=== PATIENT | female | born 1985 | race African-American/Black ===

== ENCOUNTER 2016-06-24 16:22 | Emergency (ER) | payer OTHER ==
[~2016-06-24 16:22] MED LIST: METH750T2 PO
[2016-06-24 16:25] VITALS: BP 147/84; PULSE 80; RESP 20; TEMP 97.9; O2SAT 98
[2016-06-24] MEDS ORDERED: SODIUM CHLORIDE 0.9% FLUSH 5 ML FLUSH IVF PRN (17:00)
[2016-06-24] MEDS ORDERED: PANTOPRAZOLE SOD 40 MG DELAYED RELEASE TAB PO ONE (17:00)
[2016-06-24] MEDS ORDERED: ASPIRIN 325 MG TAB PO ONE (17:00)
[2016-06-24] MEDS ORDERED: ACETAMINOPHEN 500 MG CPLT PO ONE (17:00)
--- NOTE | 2016-06-24 17:01 | PD ---
HPI Chief Complaint: Cardiac Complaint Time Seen by Provider: 16:43 Travel History International Travel<30 days: No (unknown) Contact w/Intl Traveler<30days: No (unknown) History of Present Illness HPI 31yo F with no significant PMH presents to the ED with c/o midsternal chest pain for 3 weeks. It is constant and worst after eating. Pt was seen at urgent care and given prilosec 2 weeks ago. Denies any sob, n/v, abdominal pain , weakness or numbness. Denies family history of sudden cardiac . Denies any cig smoking. PFSH Past Medical History Medical History: Denies Significant Hx Diminished Hearing: No ?: Unknown : 3 Para: 3 Past Surgical History Section: Yes (x 3) Social History Alcohol Use: No Tobacco Use: No Substance Use: No Allergies-Medications (Allergen,Severity, Reaction): Coded Allergies: No Known Allergies (Unverified , 12/04/15) Reported Meds & Prescriptions Reported Meds & Active Scripts Active Acetaminophen Extra Strength (Acetaminophen) 500 Mg Cap 500 Mg PO Q6H PRN Omeprazole 40 Mg Cap 40 Mg PO DAILY 10 Days Review of Systems Except as stated in HPI: all other systems reviewed are Neg Physical Exam Narrative GENERAL: 31yo F not in distress. SKIN: Warm and dry. HEAD: Atraumatic. Normocephalic. EYES: Pupils equal and round. No scleral icterus. No injection or drainage. CARDIOVASCULAR: Regular rate and rhythm. No murmur appreciated. RESPIRATORY: No accessory muscle use. Clear to auscultation. Breath sounds equal bilaterally. GASTROINTESTINAL: Abdomen soft, non-tender, nondistended. MUSCULOSKELETAL: No obvious deformities. No clubbing. No cyanosis. No edema. NEUROLOGICAL: Awake and alert. No obvious cranial nerve deficits. Motor grossly within normal limits. Normal speech. PSYCHIATRIC: Appropriate mood and affect; insight and judgment normal. Data Data Last Documented VS Vital Signs Date Time Temp Pulse Resp B/P Pulse Ox O2 Delivery O2 Flow Rate FiO2 06/24/16 18:44 16 06/24/16 18:00 68 118/69 99 Room Air 06/24/16 16:25 97.9 Orders Electrocardiogram (06/24/16 ) Basic Metabolic Panel (Bmp) (06/24/16 16:54) Complete Blood Count With Diff (06/24/16 16:54) Magnesium (Mg) (1/7/17 16:54) Prothrombin Time / Inr (Pt) (06/24/16 16:54) Act Partial Throm Time (Ptt) (06/24/16 16:54) Troponin I (06/24/16 16:54) Chest, Single Ap (06/24/16 16:54) Ecg Monitoring (06/24/16 16:54) Bilateral Bp Monitoring (06/24/16 16:54) Aspirin (Aspirin) (06/24/16 17:00) Sodium Chloride 0.9% Flush (Ns Flush) (06/24/16 17:00) Pantoprazole (Protonix) (06/24/16 17:00) Acetaminophen (Tylenol) (06/24/16 17:00) Labs Laboratory Tests Test 06/24/16 17:25 White Blood Count 8.7 TH/MM3 Red Blood Count 4.70 MIL/MM3 Hemoglobin 12.0 GM/DL Hematocrit 36.5 % Mean Corpuscular Volume 77.7 FL Mean Corpuscular Hemoglobin 25.5 PG Mean Corpuscular Hemoglobin 32.8 % Concent Red Cell Distribution Width 17.2 % Platelet Count 226 TH/MM3 Mean Platelet Volume 10.0 FL Neutrophils (%) (Auto) 64.5 % Lymphocytes (%) (Auto) 25.3 % Monocytes (%) (Auto) 7.7 % Eosinophils (%) (Auto) 2.1 % Basophils (%) (Auto) 0.4 % Neutrophils # (Auto) 5.6 TH/MM3 Lymphocytes # (Auto) 2.2 TH/MM3 Monocytes # (Auto) 0.7 TH/MM3 Eosinophils # (Auto) 0.2 TH/MM3 Basophils # (Auto) 0.0 TH/MM3 CBC Comment DIFF FINAL Differential Comment Prothrombin Time 10.7 SEC Prothromb Time International 1.0 RATIO Ratio Activated Partial 23.5 SEC Thromboplast Time Sodium Level 140 MEQ/L Potassium Level 4.0 MEQ/L Chloride Level 105 MEQ/L Carbon Dioxide Level 27.0 MEQ/L Anion Gap 8 MEQ/L Blood Urea Nitrogen 8 MG/DL Creatinine 0.59 MG/DL Estimat Glomerular Filtration 143 ML/MIN Rate Random Glucose 85 MG/DL Calcium Level 8.3 MG/DL Magnesium Level 2.0 MG/DL Troponin I LESS THAN 0.02 NG/ML MDM Medical Decision Making Medical Screen Exam Complete: Yes Emergency Medical Condition: Yes Interpretation(s) Laboratory Tests Test 06/24/16 17:25 White Blood Count 8.7 TH/MM3 (4.0-11.0) Red Blood Count 4.70 MIL/MM3 (4.00-5.30) Hemoglobin 12.0 GM/DL (11.6-15.3) Hematocrit 36.5 % (35.0-46.0) Mean Corpuscular Volume 77.7 FL (80.0-100.0) Mean Corpuscular Hemoglobin 25.5 PG (27.0-34.0) Mean Corpuscular Hemoglobin 32.8 % Concent (32.0-36.0) Red Cell Distribution Width 17.2 % (11.6-17.2) Platelet Count 226 TH/MM3 (150-450) Mean Platelet Volume 10.0 FL (7.0-11.0) Neutrophils (%) (Auto) 64.5 % (16.0-70.0) Lymphocytes (%) (Auto) 25.3 % (9.0-44.0) Monocytes (%) (Auto) 7.7 % (0.0-8.0) Eosinophils (%) (Auto) 2.1 % (0.0-4.0) Basophils (%) (Auto) 0.4 % (0.0-2.0) Neutrophils # (Auto) 5.6 TH/MM3 (1.8-7.7) Lymphocytes # (Auto) 2.2 TH/MM3 (1.0-4.8) Monocytes # (Auto) 0.7 TH/MM3 (0-0.9) Eosinophils # (Auto) 0.2 TH/MM3 (0-0.4) Basophils # (Auto) 0.0 TH/MM3 (0-0.2) CBC Comment DIFF FINAL Differential Comment Prothrombin Time 10.7 SEC (9.8-11.6) Prothromb Time International 1.0 RATIO Ratio Activated Partial 23.5 SEC Thromboplast Time (24.3-30.1) Sodium Level 140 MEQ/L (136-145) Potassium Level 4.0 MEQ/L (3.5-5.1) Chloride Level 105 MEQ/L (98-107) Carbon Dioxide Level 27.0 MEQ/L (21.0-32.0) Anion Gap 8 MEQ/L (5-15) Blood Urea Nitrogen 8 MG/DL (7-18) Creatinine 0.59 MG/DL (0.50-1.00) Estimat Glomerular Filtration 143 ML/MIN Rate (>89) Random Glucose 85 MG/DL (74-106) Calcium Level 8.3 MG/DL (8.5-10.1) Magnesium Level 2.0 MG/DL (1.5-2.5) Troponin I LESS THAN 0.02 NG/ML (0.02-0.05) Last Impressions Chest X-Ray 06/24/16 6814 Signed Impressions: Service Date/Time: Friday, June 24, 2016 17:18 - CONCLUSION: Normal examination. Ronaldo Longoria MD EKG: NSR 76bpm. Normal axis. TWI III, V3. Differential Diagnosis GERD vs. atypical chest pain vs. musculoskeletal pain vs. anxiety Narrative Course 31yo F with atypical chest pain for 3 weeks. Pain is worst after eating and burning. Do not think this is cardiac related. Labs reviewed, no leukocytosis. Troponin negative. CXR negative. VS stable. Pt reevaluated at bedside after aspirin 325mg, pantoprazole 40mg, and acetaminophen 1000 mg. Pt states chest pain resolved after medication. Return precautions given. Diagnosis Primary Impression: Atypical chest pain Patient Instructions: General Instructions Departure Forms: Tests/Procedures Additional Instructions: Please follow up with your PMD in 1-2 days. Return to the ED if your symptoms worsen. Med/Other Pt SpecificInfo: Prescription(s) given Scripts Acetaminophen (Acetaminophen Extra Strength)500 Mg Fll882 Mg PO Q6H PRN #20 CAP Ref 0 Prov:Angelica Jaimes DO 06/24/16 Omeprazole 40 Mg Cap40 Mg PO DAILY 10 Days Ref 0 Prov:Angelica Jaimes DO 06/24/16 Disposition: 01 DISCHARGE HOME Condition: Stable Angelica Jaimes DO Jun 24, 2016 17:01 Angelica Jaimes DO Jun 24, 2016 17:01
--- NOTE | 2016-06-24 17:23 | RADRPT ---
EXAM DATE/TIME: 06/24/2016 17:18 [facility] COMPARISON: No previous studies available for comparison. INDICATIONS : Chest pain. MEDICAL HISTORY : None. SURGICAL HISTORY : None. ENCOUNTER: Initial ACUITY: 2 days PAIN SCORE: 8/10 LOCATION: Bilateral chest FINDINGS: A single view of the chest demonstrates the lungs to be symmetrically aerated without evidence of mas s, infiltrate or effusion. The cardiomediastinal contours are unremarkable. Osseous structures are intact. CONCLUSION: Normal examination. Ronaldo Longoria MD on June 24, 2016 at 17:21 Board Certified Radiologist. This report was verified electronically.
[2016-06-24 17:48] LABS: AUTOMATED NEUTROPHIL # 5.6 TH/MM3 (1.8-7.7); BASOPHIL % 0.4 % (0.0-2.0); EOSINOPHIL # 0.2 TH/MM3 (0-0.4); EOSINOPHIL % 2.1 % (0.0-4.0); HEMATOCRIT 36.5 % (35.0-46.0); HEMO FLAGS DIFF FINAL; LYMPH % 25.3 % (9.0-44.0); LYMPHOCYTE # 2.2 TH/MM3 (1.0-4.8); MEAN CELL VOLUME 77.7 FL (80.0-100.0); MEAN CORPUSCULAR HEMOGLOBIN 25.5 PG (27.0-34.0); MEAN CORPUSCULAR HGB CONC 32.8 % (32.0-36.0); MONO % 7.7 % (0.0-8.0); NEUT % 64.5 % (16.0-70.0); PLATELET COUNT 226 TH/MM3 (150-450); RED CELL DISTRIBUTION WIDTH 17.2 % (11.6-17.2); WHITE BLOOD COUNT 8.7 TH/MM3 (4.0-11.0)
[2016-06-24 17:57] LABS: APTT (PATIENT) 23.5 SEC (24.3-30.1); PROTHROMBIN TIME - PATIENT 10.7 SEC (9.8-11.6)
[2016-06-24 18:00] VITALS: BP 118/69; PULSE 68; RESP 16; O2SAT 99
[2016-06-24 18:41] LABS: ANION GAP 8 MEQ/L (5-15); BLOOD UREA NITROGEN 8 MG/DL (7-18); CHLORIDE 105 MEQ/L (98-107); GLOMERULAR FILTRATION RATE 143 ML/MIN (>89); SODIUM (NA) 140 MEQ/L (136-145)
[2016-06-24 18:44] VITALS: RESP 16
[2016-06-24] MEDS ORDERED: EXTR500C PO (18:56)
[2016-06-24] MEDS ORDERED: OMEP40CA2 PO (18:56)
[2016-06-24 19:02] VITALS: BP 121/72; TEMP 98.5
--- NOTE | 2016-06-25 16:49 | EKG ---
Date Performed: 06/24/2016 Time Performed: 16:44:55 PTAGE: 31 years EKG: Sinus rhythm Nonspecific ST and T wave abnormalities NO PREVIOUS TRACING DOCTOR: Armand Caputo Interpretating Date/Time 06/25/2016 16:48:31
== END 2016-06-24 19:02 | disposition home or self-care (01) ==
LOC: NEPA 16:22
DX: R07.89 Other chest pain (principal)
CPT/HCPCS: 71010; 80048; 83735; 84484; 85025; 85610; 85730; 93005

== ENCOUNTER 2017-07-20 00:04 | Emergency (ER) | payer OTHER ==
[~2017-07-20] VITALS: Ht 162.6 cm; Wt 113.0 kg
[~2017-07-20 00:04] MED LIST changes: +EXTR500C PO; -METH750T2 PO; +OMEP40CA2 PO
[2017-07-20 00:06] VITALS: BP 139/93; PULSE 92; RESP 16; TEMP 98.7; O2SAT 100
== END 2017-07-20 00:28 | disposition left against medical advice (07) ==
LOC: NED 00:20
DX: Z53.21 Procedure and treatment not carried out due to patient leaving prior to being seen by health care provider (principal)
CPT/HCPCS: 99281